=== PATIENT | male | born 1980 | race Caucasian/White ===

== ENCOUNTER 2017-06-09 13:07 | Emergency (ER) | payer MEDICAID ==
[~2017-06-09] VITALS: Ht 152.4 cm; Wt 73.0 kg
[~2017-06-09 13:07] MED LIST: BACTDS PO; CEPH-443 PO; HYDR-3498 PO; IBUP800T25 PO
[2017-06-09 13:10] VITALS: Ht 152.4 cm; Wt 73.0 kg
--- NOTE | 2017-06-09 14:17 | ERD ---
ER Documentation Chief Complaint Date/Time DATE: 06/09/17 Chief Complaint Throat discomfort HPI The patient is a 37-year-old male, with no significant past medical history, who presents to the emergency department with complaint of throat discomfort for the past 3 days. The patient describes a foreign body sensation to the carrier neck/throat that has been constant for the past 3 days. He denies swallowing any known foreign bodies, or any foods with bones. Denies dysphagia , or difficulty tolerating solids or orals. Denies difficulty tolerating his oral secretions. Denies any change in phonation. Denies trismus, stridor or excessive drooling. The patient reports that he was looking in the mirror today and noted the area to the anterior neck appeared mildly more swollen than usual. Therefore, he decided to present to the emergency department for further evaluation. Denies any fevers, sweats, chills, nausea or vomiting. Denies any hemoptysis. Denies hoarseness or cough. Denies itching, choking, gagging or blood-stained saliva. Denies rhinorrhea, nasal congestion, ear pain , neck stiffness or new rashes. No other complaints at this time. ROS All systems reviewed and are negative except as per history of present illness. Medications Home Meds Active Scripts Ibuprofen* (Ibuprofen*) 800 Mg Tab, 800 MG PO Q6H Y for PAIN, #30 TAB Prov:VITALY FISHER PA-C 05/30/15 Hydrocodone Bit-Acetaminophen* ([place]*) 5-325 Mg Tab, 1 TAB PO Q4H Y for PAIN, # 20 TAB Prov:VITALY FISHER PA-C 05/30/15 Sulfamethoxazole-Trimethoprim* (Bactrim* DS) 800-160 Mg Tab, 1 TAB PO BID for 10 Days, TAB Prov:VITALY FISHER PA-C 05/30/15 Cephalexin* (Keflex*) 500 Mg Capsule, 500 MG PO Q6 for 10 Days, CAP Prov:VITALY FISHER PA-C 05/30/15 Allergies Allergies: Coded Allergies: No Known Drug Allergies (Verified Allergy, Unknown, 06/18/16) PMhx/Soc History of Surgery: No Anesthesia Reaction: No Hx Neurological Disorder: No Hx Respiratory Disorders: No Hx Cardiac Disorders: No Hx Psychiatric Problems: No Hx Miscellaneous Medical Probl: No Hx Alcohol Use: Yes Hx Substance Use: No Hx Tobacco Use: No Physical Exam Vitals Vital Signs Date Time Temp Pulse Resp B/P Pulse Ox O2 Delivery O2 Flow Rate FiO2 06/09/17 13:10 98.6 70 18 123/69 99 Physical Exam GENERAL: Well-developed, well-nourished, female, in no acute distress. HEENT: Head is normocephalic, atraumatic. No scleral pallor or icterus. Pupils equal, round and reactive to light. Extraocular movements intact. Conjunctiva pink. Moist mucous membranes. Clear oropharynx. No tonsillar exudates or erythema of the oropharynx. Uvula is midline. No trismus. No stridor. No excessive drooling. Phonation is normal. No submandibular swelling. No brawny induration. No foreign bodies noted. NECK: Supple. No masses. No lymphadenopathy. No crepitus. No erythema. Trachea midline. No nuchal rigidity. No meningismus. RESPIRATORY: Lungs are clear to auscultation bilaterally. No rales, rhonchi or wheezing. Equal breath sounds. Normal expiratory effort. CARDIOVASCULAR: Regular rate and rhythm. S1 and S2 normal. GASTROINTESTINAL: Abdomen is soft, non-tender, and non-distended. No guarding, no rebound tenderness. Normal bowel sounds. No peritonitis. EXTREMITIES: No clubbing, cyanosis, or edema. Normal skin perfusion. Moving all extremities. Muscle tone is normal. No focal swelling or erythema. NEUROLOGIC: The patient is alert, awake, and oriented x 3. INTEGUMENT: Skin is intact. Warm and dry. No rashes, no petechiae present. Normal turgor. PSYCHIATRIC: Cooperative. Appropriate. Results 24 hrs Current Medications Medications (Trade) Dose Ordered Sig/Edith Route PRN Reason Start Time Stop Time Status Last Admin Dose Admin Miscellaneous Medication (Gi Cocktail (2)) 40 ml ONCE ONCE PO 06/09/17 14:30 06/09/17 14:31 DC 06/09/17 14:41 Procedures/MDM The patient's case was reviewed and discussed with Dr. Morrow, who agrees with the plan of care including treatment and advanced imaging as appropriate. Recommend CT neck without contrast to evaluate for possible foreign body/ obstruction and ministration of GI cocktail. PROCEDURE: CT soft tissue neck. CLINICAL INDICATION: Foreign body sensation and throat TECHNIQUE: The study was performed utilizing a GE 64-slice multidetector CT scanner. Direct thin section helically acquired axial sections were obtained through the neck without contrast. Coronal and sagittal reformations were obtained. The images were reviewed on a PACS workstation. The total CTDIvol is 8.58 mGy and the DLP is 230.54 mGy-cm. One of the following 3 does reduction techniques were used during this CT examination: 1) Automated exposure control 2) Adjustment of the mA +/- kV according to patient size or 3) Use of iterative reconstruction technique COMPARISON: No priors available for comparison FINDINGS: The visualized imaged portions of the brain, scalp and calvarium are normal. The bilateral paranasal sinuses, mastoid air cells and middle ear cavities are clear. The visualized nasopharynx, oropharynx and oral cavity are normal. The bilateral thyroid lobes and lung apices are clear. The bilateral submandibular glands, sublingual glands and parotid glands are normal. No evidence for foreign bodies are noted. No evidence for pathologic lymphadenopathy is present. The imaged portions of the osseous structures demonstrate straightening of the normal cervical lordosis. No evidence for acute fractures or subluxations are present. IMPRESSION: 1. No evidence for foreign bodies. 2. Normal noncontrast neck CT. .Brooke Sarah MD, MD Date Time Electronically viewed and signed by .Brooke Sarah MD, MD on 06/09/2017 15: 55 After rest and administration of GI cocktail, the patient reports no new complaints and improvement in his discomfort. Dr. Morrow recommends discharge home. MEDICAL DECISION MAKING: This is a 37-year-old male presenting to the Emergency Department for throat discomfort and foreign body sensation to the throat for the past 3 days. Denies eating any food with bones, or swallowing any known foreign bodies (other than regular food). Denies any hemoptysis, retching, vomiting, neck pain, fevers, change in phonation, difficulty tolerating his oral secretions, or dysphagia. Patient tolerating POs in the ED. No significant findings noted on examination. Considered, but do not suspect, streptococcal pharyngitis, laryngitis, epiglottitis, peritonsillar abscess, Saul's angina, retropharyngeal abscess, mononucleosis, meningitis, allergic reaction, candidiasis, stomatitis, foreign body, dental abscess, diphtheria, pneumonia. CT imaging performed, with no evidence of free air, no foreign bodies visualized , no evidence of obstruction. Doubt esophageal obstruction. His symptoms may be secondary to recent pharyngeal abrasion or possibly esophagitis. After rest and administration of GI cocktail, the patient reports no new complaints. At this time, the patient is in stable condition, and therefore can be discharged home with strict return precautions for signs of deteriorating or worsening condition. He is advised to follow-up with his primary care provider for reevaluation and further management within the next 2-3 days, or return to the ER sooner for any new or worsening symptoms. If his symptoms do not improve, he should also consider ENT follow up. I shared my medical decision making and plan with the patient and he verbally understands and agrees with the plan for further observation and care as an outpatient. At the time of discharge, all questions were answered. Departure Diagnosis: Primary Impression: Globus sensation Condition: Stable Patient Instructions: Self-Care for Sore Throats, When You Have a Sore Throat Additional Instructions: Call your primary care doctor TOMORROW for an appointment during the next 2-3 days.See the doctor sooner or return here if your condition worsens before your appointment time. VITALY FISHER PA-C Jun 09, 2017 14:17
[2017-06-09] MEDS ORDERED: LIDOCAINE/MYLANTA 40 ML BTL PO ONE (14:30)
--- NOTE | 2017-06-09 15:55 | RADRPT ---
PROCEDURE: CT soft tissue neck. CLINICAL INDICATION: Foreign body sensation and throat TECHNIQUE: The study was performed utilizing a GE 64-slice multidetector CT scanner. Direct thin s ection helically acquired axial sections were obtained through the neck without contrast. Coronal a nd sagittal reformations were obtained. The images were reviewed on a PACS workstation. The total CT DIvol is 8.58 mGy and the DLP is 230.54 mGy-cm. One of the following 3 does reduction techniques were used during this CT examination: 1) Automated exposure control 2) Adjustment of the mA +/- kV according to patient size or 3) Use of iterative reconstruction technique COMPARISON: No priors available for comparison FINDINGS: The visualized imaged portions of the brain, scalp and calvarium are normal. The bilateral paranasal sinuses, mastoid air cells and middle ear cavities are clear. The visualized nasopharynx, oropharynx and oral cavity are normal. The bilateral thyroid lobes and l reba apices are clear. The bilateral submandibular glands, sublingual glands and parotid glands are normal. No evidence for foreign bodies are noted. No evidence for pathologic lymphadenopathy is present. The imaged portions of the osseous structures demonstrate straightening of the normal cervical lordo sis. No evidence for acute fractures or subluxations are present. IMPRESSION: 1. No evidence for foreign bodies. 2. Normal noncontrast neck CT. RPTAT: HDC .Brooke Sarah MD, MD Date Time Electronically viewed and signed by .Brooke Sarah MD, MD on 06/09/2017 15:55 .C/
== END 2017-06-09 16:04 | disposition home or self-care (01) ==
LOC: FTE 13:07
DX: F45.8 Other somatoform disorders (principal)
CPT/HCPCS: 70490; Z7502; Z7610

== ENCOUNTER 2017-10-12 16:23 | Emergency (ER) | END 2017-10-12 17:48 | disposition home or self-care (01) ==

== ENCOUNTER 2018-01-01 12:33 | Emergency (ER) | END 2018-01-01 13:17 | disposition home or self-care (01) ==

== ENCOUNTER 2018-05-12 17:34 | Emergency (ER) | END 2018-05-12 20:19 | disposition home or self-care (01) ==